=== PATIENT | male | born 1955 | race Caucasian/White ===

== ENCOUNTER 2023-11-30 09:59 | Outpatient (AMB) | payer MEDICARE, OTHER, SELFPAY ==
--- NOTE | 2023-11-30 10:05 | HO.NEPHOV ---
Vital Signs 11/30/23 10:09 Height 5 ft 8 in Weight 177 lb 2 oz BMI 26.9 BP 132/70 Blood Pressure Location Lt brachial Position Sitting Intake Visit Reasons: Continuing care- HTN / Conf Corporate Communications Specialist Required: No Accompanied by: Self / Same As Patient Allergies No Known Allergies Allergy (Verified 11/30/23 10:12) HPI Comments Details: Blair was seen in the office in follow-up his hypertension. He had labile blood pressure before. He has no history of hypokalemia, hypercalcemia, uncontrolled thyroid disorders, obstructive sleep or renal dysfunction. He had a 24 hour ambulatory blood pressure monitor in the past which showed uncontrolled blood pressure and was started on losartan which he had been tolerating well. He has no headaches, visual disturbances, peripheral arterial disease, renal artery stenosis, CVA, CAD or CHF. He has no edema. Has no side effects from medications. He is trying to be active and consume low-sodium diet. He avoids excessive nonsteroidal anti-inflammatories and maintain good hydration. He lost 35 pounds by life style modification [facility] Medical History (Updated 11/30/23 @ 10:08 by Mauri Mendoza MD) Hypertension Social History Alcohol intake: never Patient Tobacco Use Status: Never used Tobacco Review of Systems Const All systems reviewed & are unremarkable except as noted in HPI and below Physical Exam Const General: comfortable and no acute distress Orientation/consciousness: patient oriented x3 HEENT Head: Yes normocephalic Mouth: Normal oral and palatal mucosa present Eyes EOM: EOMs intact bilaterally Neck Neck: Yes supple Resp Auscultation: clear to auscultation bilaterally Cardio Jugular venous distension: no JVD Rate: regular rate GI Palpation (GI): Soft to palpation Auscultation: normal bowel sounds General: Yes no CVA tenderness Back/Spine/Pelvis Back: no CVA tenderness Skin General skin exam: no rashes or lesions noted Neuro General: patient oriented x3 and moves all extremities Extrem General: Yes no pedal edema Results Reviewed Nephrology Results: No Data to Display Assessment & Plan Assessment & Plan (1) Hypertension: Code(s): I10 - Essential (primary) hypertension Category: Medical Qualifiers: Hypertension type: primary hypertension Qualified Code(s): I10 - Essential (primary) hypertension Plan Blair has hypertension which was diagnosed by 24 hour ambulatory blood pressure monitor. He can continue losartan 50 mg daily, which he has been tolerating well. He has no history of renal dysfunction or proteinuria. There is no past history of hypokalemia, hypercalcemia, thyroid dysfunction or obstructive sleep apnea. He should maintain on a low-sodium diet and continue lifestyle modifications. I ordered a repeat renal functions and electrolytes. He has no orthostatic symptoms. He is not a smoker. His lipid profile needs to be tested in a year. I answered all his questions. Follow-up appointment given. Orders: Orders Creatinine Today I10 - Essential (primary) hypertension Blood Urea Nitrogen Today I10 - Essential (primary) hypertension Electrolytes Today I10 - Essential (primary) hypertension Protein Creatinine Ratio, Ur Today I10 - Essential (primary) hypertension Medications: New losartan 50 mg PO ONCE 90 days 90 tabs 4RF Coding Level of Care Code Est Pt Level 4 (34611) Diagnoses Primary hypertension I10 Hypertension type: primary hypertension
[2023-11-30 10:09] VITALS: BP 132/70; BMI 26.9
== END 2023-11-30 10:52 | disposition home or self-care (01) ==
PROVIDERS: Visit Provider Internal Medicine Nephrology
DX: I10 Essential (primary) hypertension (principal)
CPT/HCPCS: 99214

== ENCOUNTER → 2023-11-30 09:59 | Outpatient (BNVA) | payer MEDICARE, OTHER, SELFPAY | PROVIDERS: Visit Provider Internal Medicine Nephrology | DX: I10 Essential (primary) hypertension (principal) | CPT/HCPCS: 99212 ==

== ENCOUNTER 2025-01-30 12:33 | Outpatient (AMB) | payer MEDICARE, OTHER, SELFPAY ==
--- OUTSIDE RECORDS SUMMARY | 2024-12-27 06:30 | XMS_ITS ---
Author Organization [facility] Address [address], [place] [id number] Care Team Providers Care Inclusion Special Educator Name Role Phone JACKLYN GUERRERO Primary Care Provider REASON FOR VISIT lorazepam MEDICATIONS Medication SIG (Take, Route, Fr equency, Duration) Notes Start Date End Date Status LORazepam 0.5 MG one tablet Orally On ce a day for 30 day(s) 12/27/2024 Active Encounters Encounter Location Date Provider Diagnosis [address] [address] 12/27/2024 JACKLYN GUERRERO PLAN OF TREATMENT Medication Medication Name Sig Start Date Stop Date Notes LORazepam 0.5 MG one tablet Orally On ce a day for 30 day(s) 12/27/2024 Next Appt Details Provider Name:CHETAN Alberts, 09/16/2025 08:30:00 AM, [address] [place] [address], [phone], Provider Name:JACKLYN SEO, 09/16/2025 09:00:00 AM, [address] [place] [address], [phone],
--- OUTSIDE RECORDS SUMMARY | 2024-12-29 08:25 | XMS_ITS ---
Author Organization [facility] Address [facility] [place], [place] [id number] Care Team Providers Care Dental Ceramist Helper Name Role Phone JACKLYN GUERRERO Primary Care Provider [phone] REASON FOR VISIT uti Encounters Encounter Location Date Provider Diagnosis [address] [address] 12/29/2024 JACKLYN GUERRERO PLAN OF TREATMENT Next Appt Details Provider Name:CHETAN Alberts, 09/16/2025 08:30:00 AM, [address] [place] [address], [phone], Provider Name:JACKLYN SEO, 09/16/2025 09:00:00 AM, [address] [place] [address], [phone],
--- OUTSIDE RECORDS SUMMARY | 2024-12-30 07:28 | XMS_ITS ---
Author Organization [facility] Address [address] [place], [place] [id number] Care Team Providers Care Assurance Analyst Name Role Phone JACKLYN GUERRERO Primary Care Provider REASON FOR VISIT cold sores MEDICATIONS Medication SIG (Take, Route, Frequency, Duration) Notes Start Date End Date Status Valtrex 1 GM 1 tablet Orally thre e times daily for 7 days 12/30/2024 Active Encounters Encounter Location Date Provider Diagnosis [address] [address] 12/30/2024 JACKLYN GUERRERO PLAN OF TREATMENT Medication Medication Name Sig Start Date Stop Date Notes Valtrex 1 GM 1 tablet Orally thre e times daily for 7 days 12/30/2024 Next Appt Details Provider Name:CHETAN Alberts, 09/16/2025 08:30:00 AM, [address] [place] [address], [phone], Provider Name:JACKLYN SEO, 09/16/2025 09:00:00 AM, [address] [place] [address], [phone],
--- OUTSIDE RECORDS SUMMARY | 2024-12-31 05:03 | XMS_ITS ---
Author Organization [facility] Address [address] [place], [place] [id number] Care Team Providers Care Estimation Manager Name Role Phone JACKLYN GUERRERO Primary Care Provider REASON FOR VISIT re send Valtrex Rx MEDICATIONS Medication SIG (Take, Route, Frequency, Duration) Notes Start Date End Date Status Valtrex 1 GM 1 tablet Orally thre e times daily for 7 days 12/30/2024 Active Encounters Encounter Location Date Provider Diagnosis [address] [address] 12/31/2024 JACKLYN GUERRERO PLAN OF TREATMENT Medication Medication Name Sig Start Date Stop Date Notes Valtrex 1 GM 1 tablet Orally thre e times daily for 7 days 12/30/2024 Next Appt Details Provider Name:CHETAN Alberts, 09/16/2025 08:30:00 AM, [address] [place] [address], [phone], Provider Name:JACKLYN SEO, 09/16/2025 09:00:00 AM, [address] [place] [address], [phone],
--- OUTSIDE RECORDS SUMMARY | 2025-01-30 06:38 | XMS_ITS ---
Author Organization [facility] Address [address], [place] [id number] Care Team Providers Care Glove Finisher Name Role Phone JACKLYN GUERRERO Primary Care Provider REASON FOR VISIT lorazepam refill MEDICATIONS Medication SIG (Take, Route, Fr equency, Duration) Notes Start Date End Date Status LORazepam 0.5 MG one tablet Orally On ce a day for 30 day(s) 01/30/2025 Active Encounters Encounter Location Date Provider Diagnosis [address] [address] 01/30/2025 JACKLYN GUERRERO PLAN OF TREATMENT Medication Medication Name Sig Start Date Stop Date Notes LORazepam 0.5 MG one tablet Orally On ce a day for 30 day(s) 01/30/2025 Next Appt Details Provider Name:CHETAN Alberts, 09/16/2025 08:30:00 AM, [address] [place] [address], [phone], Provider Name:JACKLYN SEO, 09/16/2025 09:00:00 AM, [address] [place] [address], [phone],
--- NOTE | 2025-01-30 12:33 | HO.NEPHOV ---
Vital Signs 01/30/25 12:39 Height 5 ft 8 in Weight 173 lb BMI 26.3 BP 130/76 Blood Pressure Location Lt brachial Position Sitting Pulse 69 Pulse Source Pulse Oximeter Pulse Oximetry (%) 99 Oxygen Delivery Method Room Air Intake Visit Reasons: R/S 11/28/2024-Conf Accompanied by: Self / Same As Patient Allergies No Known Allergies Allergy (Verified 01/30/25 12:40) HPI Comments Details: Blair was seen in the office in follow-up his hypertension. He had labile blood pressure before. He has no history of hypokalemia, hypercalcemia, uncontrolled thyroid disorders, obstructive sleep or renal dysfunction. He had a 24 hour ambulatory blood pressure monitor in the past which showed uncontrolled blood pressure and was started on losartan which he had been tolerating well. He has no headaches, visual disturbances, peripheral arterial disease, renal artery stenosis, CVA, CAD or CHF. He has no edema. Has no side effects from medications. He is trying to be active and consume low-sodium diet. He avoids excessive nonsteroidal anti-inflammatories and maintain good hydration. He lost 35 pounds by life style modification [facility] Medical History (Updated 11/30/23 @ 10:08 by Mauri Mendoza MD) Hypertension Social History (Updated 11/30/23 @ 10:12 by Dahiana Penaloza MA) Alcohol intake: never Patient Tobacco Use Status: Never used Tobacco Review of Systems Const All systems reviewed & are unremarkable except as noted in HPI and below Physical Exam Const General: comfortable and no acute distress Orientation/consciousness: patient oriented x3 HEENT Head: Yes normocephalic Mouth: Normal oral and palatal mucosa present Eyes EOM: EOMs intact bilaterally Neck Neck: Yes supple Resp Auscultation: clear to auscultation bilaterally Cardio Jugular venous distension: no JVD Rate: regular rate GI Palpation (GI): Soft to palpation Auscultation: normal bowel sounds General: Yes no CVA tenderness Back/Spine/Pelvis Back: no CVA tenderness Skin General skin exam: no rashes or lesions noted Neuro General: patient oriented x3 and moves all extremities Extrem General: Yes no pedal edema Assessment & Plan Assessment & Plan (1) Hypertension: Code(s): I10 - Essential (primary) hypertension Category: Medical Qualifiers: Hypertension type: primary hypertension Qualified Code(s): I10 - Essential (primary) hypertension Plan Blair has hypertension which was diagnosed by 24 hour ambulatory blood pressure monitor. He can continue losartan 50 mg daily, which he has been tolerating well. He has no history of renal dysfunction or proteinuria. There is no past history of hypokalemia, hypercalcemia, thyroid dysfunction or obstructive sleep apnea. He should maintain on a low-sodium diet and continue lifestyle modifications. I ordered a repeat renal functions and electrolytes. He has no orthostatic symptoms. He is not a smoker. His lipid profile needs to be tested in a year. I answered all his questions. Follow-up appointment given. Orders: Orders Protein Creatinine Ratio, Ur 8 Months I10 - Essential (primary) hypertension Electrolytes 8 Months I10 - Essential (primary) hypertension Calcium 8 Months I10 - Essential (primary) hypertension Blood Urea Nitrogen 8 Months I10 - Essential (primary) hypertension Creatinine 8 Months I10 - Essential (primary) hypertension Medications: New atorvastatin 10 mg PO DAILY 90 tabs 3RF Refilled losartan 50 mg PO ONCE 90 tabs 4RF 90 days Coding Level of Care Code Est Pt Level 4 (04654) Diagnoses Primary hypertension I10 Hypertension type: primary hypertension
[2025-01-30 12:39] VITALS: BP 130/76; PULSE 69; O2SAT 99; BMI 26.3
--- OUTSIDE RECORDS SUMMARY | 2025-01-30 17:23 | XMS_ITS | Patient Health Record ---
Author Organization [facility] Address [address] [place], [place] [id number] Care Team Providers Care Gum Remover Name Role Phone YOLANDA JACKLYN Primary Care Provider LORIE, NURSING Unavailable [phone] ALLERGIES No Known Allergies REASON FOR REFERRAL No Information MEDICATIONS Medication SIG (Take, Route, Frequency, Duration) Notes Start Date End Date Status Valtrex 1 GM 1 tablet Orally thre e times daily for 7 days 12/30/2024 Active LORazepam 0.5 MG one tablet Orally On ce a day for 30 day(s) 01/30/2025 Active Cipro 250 MG 1 tablet Orally ever y 12 hrs for 10 days 12/27/2024 Active Losartan Potassium 50 MG 1 tablet Orally Once a day for 90 days 09/10/2024 Active Airsupra 90-80 MCG/ACT 2 puffs as needed Inhalation q day prn for 30 day(s) 09/06/2023 Active Finasteride 1 MG TAKE 1 TABLET BY PATRICIO TH EVERY DAY for 90 Active Atorvastatin Calcium 10 MG TAKE 1 TABLET BY MOUTH EVERY DAY FOR 90 DAYS for 90 Active SOCIAL HISTORY Tobacco Use: Social History Observation Description Date Details (start date - stop date) Former Smoker NA - NA Sex Assigned At : Social History Observation Description Sex Assigned At Unknown Smoking Question Answer Notes Are you a: former smoker Alcohol Screen Question Answer Notes Did you have a drink containing alcohol in the p ast year? 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) (702014985) VITAL SIGNS Blood pressure diastolic 80 mm Hg 09/10/2024 Height 5 ft 9 in in 09/10/2024 Blood pressure systolic 130 mm Hg 09/10/2024 Weight 170 lbs 09/10/2024 BMI 25.10 kg/m2 09/10/2024 Encounters Encounter Location Date Provider Diagnosis [place] [phone] 02/27/2024 JACKLYN GUERRERO [place] [phone] 03/27/2024 JACKLYN GUERRERO History of asthma Z87.[address] [address] 04/10/2024 JACKLYN GUERRERO [place] [phone] 05/13/2024 JACKLYN GUERRERO [place] [phone] 06/18/2024 JACKLYN GUERRERO [address] [address] 07/24/2024 JACKLYN GUERRERO History of asthma Z87.[address] [address] 07/25/2024 JACKLYN GUERRERO [address] [address] 08/26/2024 JACKLYN GUERRERO [place] [phone] 09/10/2024 JACKLYN GUERRERO Medicare annual wellness visit, subsequent Z00.[address] [address] 09/10/2024 JACKLYN GUERRERO Essential (primary) hypertension I10 ; Encntr for general adult medical exam w/o abnormal findings Z00.00 ; Disorder of lipoprotein metabolism, unspecified E78.9 ; History of asthma Z87.09 ; Nonscarring hair loss L65.9 and Nocturia R35.[address] [address] 09/10/2024 JACKLYN GUERRERO [address] [place] [address] 09/10/2024 JACKLYN GUERRERO [facility] [address] [place] [phone] 09/26/2024 NURSING [facility] [address] [place] [address], [place] [address] 10/11/2024 JACKLYN GUERRERO [facility] [address] [place] [phone] 11/12/2024 JACKLYN GUERRERO [facility] [address] [place] [address], [place] [address] 12/17/2024 JACKLYN GUERRERO [address] [place] [address] 12/27/2024 JACKLYN GUERRERO Urinary tract infection in male N39.[address] [place] [address] 12/27/2024 JACKLYN YOLANDA [address] [address] 12/29/2024 JACKLYN YOLANDA [address] [place] [address] 12/30/2024 JACKLYN YOLANDA [address] [address] 12/31/[address] [address] 01/30/2025 JACKLYN GUERRERO ASSESSMENTS Encounter Date Diagnosis Assessment Notes Treatment Notes Treatment Clinical Notes Section Notes 09/10/2024 Medicare annual wellness visit, subsequent (ICD-10 - Z00.00) AWV reviewed with pt 09/10/2024 Essential (primary) hypertension (ICD-10 - I10) Patient had been on I believe losartan he had stopped it in the last month or 2 for an unknown reasons. Recommend resuming and then checking blood pressure with nursing in 2 weeks along with potassium 09/10/2024 Encntr for general adult medical exam w/o abnormal findings (ICD-10 - Z00.00) 03/27/2024 History of asthma (ICD-10 - Z87.09) 07/24/2024 History of asthma (ICD-10 - Z87.09) 12/27/2024 Urinary tract infection in male (ICD-10 - N39.0) 09/10/2024 Disorder of lipoprotein metabolism, unspecified (ICD-10 - E78.9) Total cholesterol goal less than 200 LDL less than 100. Continue statin therapy review of systems negative for side effects Mediterranean diet recommended 09/10/2024 History of asthma (ICD-10 - Z87.09) Stable by physical exam review of systems no need for treatment present time 09/10/2024 Nonscarring hair loss (ICD-10 - L65.9) Stable continue finasteride 09/10/2024 Nocturia (ICD-10 - R35.1) Physical exam normal mild BPH by symptoms check PSA PLAN OF TREATMENT Pending Test Test Name Order Date EKG 09/10/2024 EKG 09/06/2023 EKG 08/15/2023 Future Test Test Name Order Date [id number] 08/10/2023 Hepatitis B Surface Antigen - [id number] 08/2023 Prostate-Specific Ag (PSA)-[id number] 2023 CBC, Platelet, w/o Differential-[id number] 0 08/10/2023 Lipoprotein (a)-[id number] 08/10/2023 Lipid Panel-[id number] 08/10/2023 BMP8+eGFR-[id number] 08/10/2023 BMP8+eGFR-[id number] 09/28/2023 Next Appt Details Provider Name:CHETAN Alberts, 09/16/2025 08:30:00 AM, [address] [place] [address], [phone], Provider Name:JACKLYN SEO, 09/16/2025 09:00:00 AM, [address] [place] [address], [phone], Insurance Providers Payer Name Payer Address Payer Phone Subscriber Number Group Number Insured Name Patient Relationship to Insured Coverage Start Date Coverage End Date MEDICARE [employer] [address] [place] [address] [id number] JACKLYN MILES Self - patient is the insured [facility] [address] [place] [address] [id number] JACKLYN MILES Self - patient is the insured MEDICAL (GENERAL) HISTORY Medical History History ICD Code Colonoscopy - 10/27/2009 - Ri ght hyperplastic polyp, colon polyp - tubular adenoma Colonoscopy - 05/16/2012 - two colon adeno mas, diverticulosis CT of abd & pelv 11/13/2012 - Mild prostatic enlargement w/prostatic calcifications. Diffuse colonic diverticulosis. 3mm noncalcified subpleural R basilar pulmonary nodule & possible subsegmental atelectatic or consolidative changes in the medial segment of the R middle lobe vs fibrosis US of abd 05/15/2012 - 2 tiny benign toshia earing hepatic cysts Hypertension. [place] [employer] Supervisor Dr. Mendoza. O V November [address] Juarez polyp . Recheck [address] Mendoza 2022 labile hypert ension Surgical History Surgery Date(Month/Year)
--- OUTSIDE RECORDS SUMMARY | 2025-01-30 17:24 | XMS_ITS | Clinical Summary ---
Author Organization [facility] Address [address] [phone] Phone Care Team Providers Care Freelance Translator Name Role Phone Blair Jenkins MD Primary Care Provider Allergies No known active allergies Medications atorvastatin (LIPITOR) 10 MG tablet Take 10 mg by mouth 1 (one) time each day 05/07/2022 Active LORazepam (ATIVAN) 0.5 MG tablet Take 0.5 mg by mouth at night if needed 07/09/2022 Active losartan (Cozaar) 25 MG tablet Take 2 tablets (50 mg total) by mouth 1 (one) time each day 90 tablet 3 11/29/2022 Active Active Problems Problem Noted Date Diagnosed Date Essential (primary) hypertension 08/09/2022 Family History Relation Status Comments Father Mother Social History Tobacco Use Types Packs/Day Years Used Date Smoking Tobacco: Never Smokeless Tobacco: Never Tobacco Cessation:Counseling Given: Not Answered Alcohol Use Standard Drinks/Week Comments Never 0 (1 standard drink = 0.6 oz pur e alcohol) Sex and Gender Information Value Date Recorded Sex Assigned at Not on file Legal Sex Male 8:29 AM EDT Gender Identity Not on file Sexual Orientation Not on file Last Filed Vital Signs Vital Sign Reading Time Taken Comments Blood Pressure 130/80 11/29/2022 4:09 PM EDT Pulse 76 11/29/2022 4:09 PM EDT Temperature - - Respiratory Rate - - Oxygen Saturation - - Inhaled Oxygen Concentration - - Weight 83.9 kg (185 lb) 11/29/2022 4:09 PM EDT Height - - Body Mass Index - - Plan of Treatment Health Maintenance Due Date Last Done Comments Pneumococcal Vaccine: 50+ Ye ars (1 of 2 - PCV) 1976 Colorectal Cancer Screening: Annual FOBT 2006 Colorectal Cancer Screening: Colonoscopy 2006 Colorectal Cancer Screening: Sigmoidoscopy 2006 Influenza Vaccine (#1) 2025 Hepatitis B Vaccine Aged Out No longe r eligible based on patient's age to complete this topic Insurance Medicare Medicare Care Teams Freelance Translator Relationship Specialty Start Date End Date Blair Jenkins MD [address] [place] [address] PCP - General Internal Medicine 07/28/22
== END 2025-01-30 13:38 | disposition home or self-care (01) ==
LOC: HO.HKAS 12:33
PROVIDERS: PCP Internal Medicine; Visit Provider Internal Medicine Nephrology
DX: I10 Essential (primary) hypertension (principal)
CPT/HCPCS: 99214

== ENCOUNTER → 2025-01-30 12:33 | Outpatient (BNVA) | payer MEDICARE, SELFPAY | PROVIDERS: PCP Internal Medicine; Visit Provider Internal Medicine Nephrology | DX: I10 Essential (primary) hypertension (principal) | CPT/HCPCS: 99212 ==